=== PATIENT | female | born 1965 | race Caucasian/White ===

== ENCOUNTER 2016-06-27 21:44 | Inpatient (IN) | payer OTHER ==
[~2016-06-27] VITALS: Ht 157.5 cm; Wt 68.0 kg
--- NOTE | 2016-06-27 22:00 | NUR ---
TO BED 2 AMBULATORY C/O RUQ ABD PAIN RADIATES TO LUQ ABD WITH NAUSEA AND MIDUPPER BACK X SEVERAL MONTHS. PT AAOX4 NO ACUTE DISTRESS NOTED, RESP EVEN AND UNLABORED. PENDING ER MD ABEL.
[2016-06-27] MEDS ORDERED: ONDANSETRON 4 MG TAB.RAPDIS ONE (22:24)
[2016-06-27] MEDS ORDERED: ONDANSETRON 4 MG TAB.RAPDIS SL ONE (22:30)
--- NOTE | 2016-06-27 22:33 | NUR ---
HENRY TECH AT BEDSIDE FOR GALLBLADDER HENRY.
[2016-06-27 22:37] LABS: BASOPHILS # (AUTO) 0.1 /CMM (0.0-0.2); BASOPHILS % (AUTO) 0.9 % (0.0-2.0); EOSINOPHILS # (AUTO) 0.4 /CMM (0.0-0.7); EOSINOPHILS % (AUTO) 3.2 % (0.0-6.0); HEMATOCRIT 37 % (33-45); HEMOGLOBIN 12.4 g/dL (11.5-14.8); LYMPHOCYTES # (AUTO) 2.6 /CMM (0.8-4.8); LYMPHOCYTES % (AUTO) 21.8 % (20.0-44.0); MEAN CORPUSCULAR HEMOGLOBIN 30 PG (26.0-33.0); MEAN CORPUSCULAR HGB CONC 33 g/dl (31.0-36.0); MEAN CORPUSCULAR VOLUME 89 fL (82-100); NEUTROPHILS # (AUTO) 7.9 /CMM (1.8-8.9); NEUTROPHILS % (AUTO) 66.1 % (43.0-81.0); PLATELET COUNT (AUTO) 336 /CMM (150-450); RDW COEFFICIENT OF VARIATION 13.1 (11.5-15.0); RED BLOOD CELL COUNT(AUTO) 4.18 MIL/uL (4.0-5.2)
[2016-06-27] MEDS ORDERED: ONDANSETRON HCL/PF 4 MG/2 ML VIAL ONE (22:37)
[2016-06-27] MEDS ORDERED: HYDROMORPHONE 1 MG/1 ML DISP.SYRIN ONE (22:37)
[2016-06-27] MEDS ORDERED: IV SET PRIMARY PUMP SET 1 EA INFUS.SET MC ONE (22:37)
[2016-06-27] MEDS ORDERED: IV NS 0.9% 1,000 ML ONE ×2 (22:37→23:51)
[2016-06-27] MEDS ORDERED: PIPERACILLIN /TAZOBACTAM 3.375 G VIAL IV ONE (22:42)
[2016-06-27] MEDS ORDERED: SECONDARY IV SET 1 EA INFUS.SET MC ONE (22:43)
--- NOTE | 2016-06-27 22:44 | NUR ---
RN AT BEDSIDE TO MEDICATE PT.
[2016-06-27 22:46] LABS: CALCIUM, SERUM 8.6 mg/dL (8.5-10.1); CREATININE 0.9 mg/dL (0.6-1.3); POTASSIUM 3.7 mmol/L (3.5-5.1)
[2016-06-27 22:49] LABS: INR 0.89 (0.87-1.13); PROTHROMBIN TIME 9.4 SECS (9.5-12.7)
[2016-06-27 22:52] LABS: ALBUMIN 4.1 g/dL (3.4-5.0); BILIRUBIN,DIRECT 0.1 mg/dL (0.0-0.2); BILIRUBIN,TOTAL 0.2 mg/dL (0.2-1.0); TOTAL PROTEIN, SERUM 7.1 g/dL (6.4-8.2)
[2016-06-27] MEDS ORDERED: HYDROMORPHONE 1 MG/1 ML DISP.SYRIN IV ONE (23:00)
[2016-06-27] MEDS ORDERED: PIPERACILLIN /TAZOBACTAM 3.375 G in IV D5W 50 ML IV ONE (23:00)
[2016-06-27] MEDS ORDERED: ONDANSETRON HCL/PF 4 MG/2 ML VIAL IV ONE (23:00)
[2016-06-27] MEDS ORDERED: IV NS 0.9% 1,000 ML BAG IV ONE ×2 (23:00→23:30)
[2016-06-27 23:17] LABS: BILIRUBIN,URINE NEGATIVE (NEGATIVE); BLOOD, URINE TRACE-INTA Ery/uL (NEGATIVE); COLOR,URINE YELLOW (YELLOW); KETONES,URINE NEGATIVE (NEGATIVE); LEUKOCYTE ESTERASE ,URINE NEGATIVE (NEGATIVE); NITRITE, URINE NEGATIVE (NEGATIVE); PROTEIN,URINE NEGATIVE (NEGATIVE); UGLUCOSE NEGATIVE (NEGATIVE); UROBILINOGEN,URINE 0.2 EU/dL (0.2)
--- NOTE | 2016-06-27 23:17 | NUR ---
ER MD TALKING TO PT REGARDING LA RESULTS AND HOSPITAL ADMISSION. PT AGREED.
--- NOTE | 2016-06-27 23:18 | NUR ---
FRANCESCO HERNADEZ SPOKE TO DR. ROD REYNOLDS PT ADMISSION.
[2016-06-27 23:23] LABS: APPEARANCE,URINE HAZY (CLEAR)
[2016-06-27 23:27] LABS: ADD URINE CULTURE NO; BACTERIA,URINE None seen /HPF (None Seen); CALCIUM OXALATE CRYSTALS,UR Many /HPF (None Seen); RBC,URINE 0-2 /HPF (0-2); SQUAMOUS EPITHELIAL CELL,UR Rare /HPF (None Seen)
--- NOTE | 2016-06-27 23:50 | NUR ---
ER SPOKE TO ABIGAIL DOOLEY DNP REGARDING PT ADMISSION.
--- NOTE | 2016-06-28 00:05 | NUR ---
REPORT CALLED TO M/S DIEGO DUGAN. WILL TRANSPORT PT TO ROOM 118-1.
[2016-06-28 01:00] VITALS: BP 103/63
[2016-06-28] MEDS ORDERED: Z GUARD REMEDY 2 OZ OINT TP PRN (01:00)
[2016-06-28] MEDS ORDERED: ONDANSETRON HCL/PF 4 MG/2 ML VIAL IVP PRN (01:00)
[2016-06-28] MEDS ORDERED: ACETAMINOPHEN 325 MG TABLET PO PRN (01:00)
[2016-06-28] MEDS ORDERED: ZOLPIDEM TARTRATE 5 MG TABLET PO PRN (01:00)
[2016-06-28] MEDS ORDERED: MAGNESIUM HYDROXIDE 30 ML UDC PO PRN (01:00)
[2016-06-28] MEDS ORDERED: IV D5/0.45 NACL 1,000 ML IV ONE (01:53)
[2016-06-28] MEDS: IV D5/0.45 NACL 1,000 ML IV PRN ×2 (02:00→16:28)
--- NOTE | 2016-06-28 02:29 | NUR ---
RN NOTES: 0040 : RECEIVED PATIENT FROM ER DEPARTMENT ON STABLE CONDITION, NO COMPLAINS OF PAIN OR ACUTE DISTRESS NOTED. PATIENT'S VITAL SIGNS : BP:103/63 MMHG. HR:58 BPM. RR:16 B/MIN O2 SAT: 96%. PATIENT IS KEPT NPO ORDERED BY MD. PATIENT ON ROOM AIR. PATIENT HAS LAC IV ACCESS GAUGE 20. ON D5 1/2 NS @75 ML/HR. WILL CONTINUE TO MONITOR PATIENT.
[2016-06-28 04:00] VITALS: BP 100/58
[2016-06-28] MEDS ORDERED: PIPERACILLIN /TAZOBACTAM 3.375 G VIAL IV ONE (05:48)
[2016-06-28] MEDS ORDERED: SECONDARY IV SET 1 EA INFUS.SET MC ONE ×2 (05:49→11:26)
[2016-06-28] MEDS ORDERED: IV D5W 50 ML IV ONE ×2 (05:49→05:50)
[2016-06-28] MEDS: PIPERACILLIN /TAZOBACTAM 3.375 G in IV D5W 50 ML IV SCH ×4 (06:05→23:34)
--- NOTE | 2016-06-28 07:30 | NUR ---
RN INITIAL NOTE RECEIVED PT FORM PM SHIFT.PT A/O X 4 ABLE TO EXPRESS NEEDS AND WANTS. ALETHA#6, PT ON RA NO S/S OF ACUTE SOB OR DISTRESS. IV L AC #20 DS1/2 NS @ 75 ML/HR FLUSH PATENT AND INTACT. PT RESTING COMFORTABLY IN BED CLEAN WARM AND DRY. ALL SAFETY MEASURES IN PLACE. WILL CONTINUE TO MONITOR CLOSELY.
[2016-06-28 08:00] VITALS: BP 112/71
[2016-06-28] MEDS: MORPHINE SULFATE INJ 2 MG/ML DISP.SYRIN IV PRN ×5 (08:15→21:05)
[2016-06-28] MEDS ORDERED: IBUP200C5 PO (08:21)
[2016-06-28 16:00] VITALS: BP 133/82
[2016-06-28 20:00] VITALS: BP 146/88
--- NOTE | 2016-06-28 20:00 | NUR ---
RN INITIAL NOTE; PT RECEIVED ON BED WITHOUT ANY DISTRESS, PT IS A/O X 4 ,BREATHING EVEN AND UNLABORED. PERIPHERAL IV IN RIGHT HAND 22G INTACT AND PATENT WITH CONTINUE D5 1/2 NS @ 75 ML/HR , BED IN LOWEST AND LOCKED POSITION, CONTINENT TO BOWEL/BLADDER HABIT. CALL LIGHT WITHIN REACH, WILL CONTINUE TO MONITOR.
--- NOTE | 2016-06-28 20:01 | NUR ---
RN CLOSING NOTE PT A/O X 4 ABLE TO EXPRESS NEEDS AND WANTS. PT ON RA NO S/S OF ACUTE SOB OR DISTRESS. IV R HAND 24 DS1/2 NS @ 75 ML/HR FLUSH PATENT AND INTACT. PT RESTING COMFORTABLY IN BED CLEAN WARM AND DRY. PAIN MEDICATION. REPORT GIVEN TO PM SHIFT FOR TANVI. PT STABLE THROUGH OUT SHIFT.
[2016-06-29 04:00] VITALS: BP 106/67
[2016-06-29] MEDS: MORPHINE SULFATE INJ 2 MG/ML DISP.SYRIN IV PRN ×4 (05:02→21:47)
[2016-06-29] MEDS: PIPERACILLIN /TAZOBACTAM 3.375 G in IV D5W 50 ML IV SCH ×3 (06:30→17:01)
--- NOTE | 2016-06-29 07:34 | NUR ---
RN EOS NOTE; PT REMAINED STABLE DURING THE SHIFT. NO DISTRESS NOTED, PRN MORPHINE 2MG IV GIVEN FOR PAIN, TOLERATED WELL, IV ATB TOLERATED WELL. ALL NEEDS ATTENDED PROMPTLY. CALL LIGHT WITHIN REACH , ENDORSE TO NEXT SHIFT RN FOR CONTINUITY OF CARE.
[2016-06-29 07:37] LABS: BASOPHILS % (AUTO) 0.6 % (0.0-2.0); EOSINOPHILS # (AUTO) 0.3 /CMM (0.0-0.7); EOSINOPHILS % (AUTO) 4.5 % (0.0-6.0); HEMATOCRIT 32 % (33-45); HEMOGLOBIN 10.8 g/dL (11.5-14.8); LYMPHOCYTES # (AUTO) 1.8 /CMM (0.8-4.8); LYMPHOCYTES % (AUTO) 25.9 % (20.0-44.0); MEAN CORPUSCULAR HEMOGLOBIN 30 PG (26.0-33.0); MEAN CORPUSCULAR HGB CONC 34 g/dl (31.0-36.0); MEAN CORPUSCULAR VOLUME 89 fL (82-100); MONOCYTES # (AUTO) 0.7 /CMM (0.1-1.30); MONOCYTES % (AUTO) 10.2 % (2.0-12.0); NEUTROPHILS # (AUTO) 4.1 /CMM (1.8-8.9); NEUTROPHILS % (AUTO) 58.8 % (43.0-81.0); PLATELET COUNT (AUTO) 272 /CMM (150-450); RDW COEFFICIENT OF VARIATION 13.3 (11.5-15.0); RED BLOOD CELL COUNT(AUTO) 3.61 MIL/uL (4.0-5.2)
[2016-06-29 07:52] LABS: ALBUMIN 3.6 g/dL (3.4-5.0); BILIRUBIN,TOTAL 0.6 mg/dL (0.2-1.0); CALCIUM, SERUM 8.4 mg/dL (8.5-10.1); CREATININE 0.8 mg/dL (0.6-1.3); MAGNESIUM 2.1 mg/dL (1.8-2.4); PHOSPHORUS 4.2 mg/dL (2.5-4.9); POTASSIUM 3.7 mmol/L (3.5-5.1); TOTAL PROTEIN, SERUM 6.5 g/dL (6.4-8.2)
[2016-06-29 08:00] VITALS: BP 112/63
[2016-06-29 08:00] LABS: THYROID STIMULATING HORMONE 2.877 uIU/mL (0.358-3.74)
--- NOTE | 2016-06-29 08:00 | NUR ---
MS RN NOTE PATIENT IN BED , NO C\O DISCOMFORT AT THIS ABIGAIL . ON NPO STATUS AT THIS TIME , ALERT ,ORIENTED X4 , RT HAND HL INTACT , NO S\S INFECTION NOTED , ON IVF ORDERED , PLAN OF CARE DISCUSSED WITH PATIENT , ALL NEEDS ATTENDED, BED IN LOWEST AND LOCKED POSITION , CALL LIGHT WITHIN REACH , WILL MONITOR CLOSELY
[2016-06-29 08:19] VITALS: BP 112/63
[2016-06-29] MEDS: IV D5/0.45 NACL 1,000 ML IV PRN ×2 (09:10→21:51)
--- NOTE | 2016-06-29 10:20 | NUR ---
MS RN NOTE PER DR CAPELLAN OK TO START LIQUID DIET ORDER JOHANNA OUT , MORPHINE FOR PAIN GIVEN ORDERED ,WILL CONT TO MONITOR CLOSELY
--- NOTE | 2016-06-29 13:32 | NUR ---
MS RN NOTE PER OR GÓMEZ DR CAPELLAN CONSENT FOR HIDA SCAN OBTAINED ,CONT ON IVF AND PATIENT WILL BE ON NPO WILL F\ U
--- NOTE | 2016-06-29 15:52 | NUR ---
MS RN NOTES Pt no c/o discomfort at this time. Continue fluids as ordered. Keep NPO. Awaiting for HIDA scan
[2016-06-29 16:00] VITALS: BP 120/58
--- NOTE | 2016-06-29 17:05 | NUR ---
MS RN NOTE TAKEN TO NUCLEAR MEDS JONO HIDDA SCAN ORDERED
--- NOTE | 2016-06-29 18:47 | NUR ---
MS RN NOTE BACK FROM HIDDA SCAN BUT PER TATIANA NUCLEAR MEDS STILL NPO NO MORPHINE AT THIS TIME WILL HAVE ADDITION TEST AT 2100
--- NOTE | 2016-06-29 19:46 | NUR ---
RN INITIAL NOTE; PT ON THE BED RESTING AT THIS TIME . A/O x4 , BREATHING EVEN AND UNLABORED ON ROOM AIR , RH #22 G INTACT AND PATENT WITH CONTINUE IVF. PT HAVING PAIN BUT CANNOT HAVE MORPHINE UNTIL 9PM ADDITIONAL TEST, DISTRACTION, REDIRECTING, DEEP BREATHING , MEDITATION ,BACK RUBBING EFFECTIVE AT THIS TIME, BED IN THE LOWEST AND LOCKED POSITION , SAFETY MEASURES APPLIED, CONTINENT TO BOWEL/BLADDER HABIT. ASSISTED NEEDED , WILL KEEP CLEAN AND COMFORTABLE. CALL LIGHT WITHIN REACH .WILL CONTINUE TO MONITOR .
[2016-06-29 20:00] VITALS: BP 140/67
[2016-06-30] MEDS: PIPERACILLIN /TAZOBACTAM 3.375 G in IV D5W 50 ML IV SCH ×5 (00:24→23:37)
[2016-06-30] MEDS: MORPHINE SULFATE INJ 2 MG/ML DISP.SYRIN IV PRN ×6 (02:25→23:39)
[2016-06-30 04:00] VITALS: BP 113/44
--- NOTE | 2016-06-30 07:08 | NUR ---
RN EOS NOTE; NO ANY DISTRESS DURING THE SHIFT, PRN MORPHINE IV GIVEN NEEDED, KEPT COMFORTABLE, ALL NEEDS ATTENDED PROMPTLY. NPO FOR SURGERY , CONSENT SIGNED BY PT .ENDORSED TO NEXT SHIFT RN FOR CONTINUITY OF CARE.
[2016-06-30 07:10] LABS: BASOPHILS % (AUTO) 0.7 % (0.0-2.0); EOSINOPHILS # (AUTO) 0.4 /CMM (0.0-0.7); EOSINOPHILS % (AUTO) 6.4 % (0.0-6.0); HEMATOCRIT 32 % (33-45); HEMOGLOBIN 10.6 g/dL (11.5-14.8); LYMPHOCYTES # (AUTO) 1.9 /CMM (0.8-4.8); LYMPHOCYTES % (AUTO) 29.5 % (20.0-44.0); MEAN CORPUSCULAR HEMOGLOBIN 30 PG (26.0-33.0); MEAN CORPUSCULAR HGB CONC 34 g/dl (31.0-36.0); MEAN CORPUSCULAR VOLUME 89 fL (82-100); MONOCYTES # (AUTO) 0.7 /CMM (0.1-1.30); MONOCYTES % (AUTO) 10.3 % (2.0-12.0); NEUTROPHILS # (AUTO) 3.4 /CMM (1.8-8.9); NEUTROPHILS % (AUTO) 53.1 % (43.0-81.0); PLATELET COUNT (AUTO) 261 /CMM (150-450); RDW COEFFICIENT OF VARIATION 12.9 (11.5-15.0); RED BLOOD CELL COUNT(AUTO) 3.53 MIL/uL (4.0-5.2); WHITE BLOOD COUNT (AUTO) 6.4 K/uL (4.3-11.0)
[2016-06-30 07:20] LABS: CALCIUM, SERUM 8.5 mg/dL (8.5-10.1); CREATININE 0.8 mg/dL (0.6-1.3); MAGNESIUM 2.1 mg/dL (1.8-2.4); PHOSPHORUS 4.5 mg/dL (2.5-4.9); POTASSIUM 3.7 mmol/L (3.5-5.1)
[2016-06-30 08:00] VITALS: BP 106/62
--- NOTE | 2016-06-30 08:00 | NUR ---
MS RN NOTE: RECEIVED PATIENT ALERT AND ORIENTED X3 IN BED, ON RA NAD NOTED. RH 22G WITH IV FLUIDS. IV PATENT AND INTACT. PATIENT ABLE TO AMBULATE TO RESTROOM. C/O PAIN. PAIN MANAGEMENT PROVIDED. PATIENT DUE FOR LAP JOHNNY AT 0900, EDUCATION PROVIDED ABOUT SURGERY AND PLAN OF CARE. SAFETY MAINTAINED, CALL LIGHT PLACED WITHIN REACH. ONGOING MONITORING.
[2016-06-30] MEDS ORDERED: MIDAZOLAM HCL 2 MG/2ML VIAL ONE (09:05)
[2016-06-30] MEDS ORDERED: ROCURONIUM BROMIDE 50 MG/5 ML ONE (09:06)
[2016-06-30] MEDS ORDERED: FENTANYL PF 100MCG/2ML AMPUL ONE (09:06)
[2016-06-30] MEDS ORDERED: BUPIVACAINE MPF 0.5% W/EPI INJ 30 ML VIAL ONE (09:20)
--- NOTE | 2016-06-30 09:25 | NUR ---
MS RN NOTE: PATIENT TRANSPORTED TO OR FOR SURGERY, ALERT AND ORIENTED X3, NAD NOTED. VSS
[2016-06-30] MEDS ORDERED: CEFAZOLIN 0 GM ONE (10:19)
[2016-06-30] MEDS ORDERED: HYDROMORPHONE INJ 2 MG/ML DISP.SYRIN ONE (12:03)
[2016-06-30] MEDS ORDERED: HYDROMORPHONE 1 MG/1 ML DISP.SYRIN ONE (12:16)
--- NOTE | 2016-06-30 13:00 | NUR ---
MS RN NOTE: PATIENT RECEIVED FROM OR ALERT AND ORIENTED X3 ON RA, NO RESPIRATORY DISTRESS NOTED. PATIENT DENIES PAIN AT THIS TIME HOWEVER STATES SHE FEELS LOOPY. BED ALARM ON. PATIENT INSTRUCTED TO STAY IN BED. POST OP ORDERS RECEIVED. 5 ABD INCISIONS NOTED, MINIMAL REDNESS AND NO SWELLING. PATIENT MADE COMFORTABLE, NEEDS MET, VSS, CALL LIGHT WITHIN REACH. ONGOING MONITORING
[2016-06-30] MEDS ORDERED: CELLULOSE,OXIDIZED 1 EACH EACH MC ONE (15:06)
[2016-06-30] MEDS ORDERED: ANESTHESIA TRAY IN PYXIS 1 EA TRAY MC ONE (15:06)
[2016-06-30 16:00] VITALS: BP 126/73
[2016-06-30] MEDS: IV LR 1000 ML 1,000 ML IV PRN ×2 (16:16→23:39)
[2016-06-30] MEDS ORDERED: HYDROCODONE/APAP 5/325MG 1 EACH TABLET PO PRN (17:30)
[2016-06-30] MEDS ORDERED: ANCEF 1 GM/50 ML D5W IV SCH ×2 (18:00)
--- NOTE | 2016-06-30 19:10 | NUR ---
MS RN NOTE: PATIENT AWAKE ALERT AND ORIENTED, PAIN MANAGEMENT PROVIDED, ON CLEAR LIQUID DIET THAT TOLERATED. PATIENT C/O NAUSEA, ZOFRAN ADMINISTERED. PAIN MANAGEMENT PROVIDED. ALL NEEDS MET. SAFETY MAINTAINED. CALL LIGHT WITHIN REACH, PATIENT ENDORSED FOR CONTINUITY OF CARE
[2016-06-30 20:00] VITALS: BP 124/65
[2016-07-01] MEDS: MORPHINE SULFATE INJ 2 MG/ML DISP.SYRIN IV PRN ×4 (02:18→12:06)
--- NOTE | 2016-07-01 04:14 | NUR ---
PT STILL ON CLEARS, IV FLUIDS CONTINUED, NO BM BUT PASSES GAS, PAIN CONTROLLED WITH MORPHINE 2MG,LAP SITES INTACT AND DRY, GLUED INCISION.REQUESTED TO SLEEP UNDISTURBED AFTER 0200 PAIN SHOT,VSS,AFEBRILE, ALL NEEDS ATTENDED.CALL LIGHT AT REACHED.
[2016-07-01] MEDS: PIPERACILLIN /TAZOBACTAM 3.375 G in IV D5W 50 ML IV SCH ×2 (05:30→12:00)
[2016-07-01 05:37] VITALS: BP 139/60
--- NOTE | 2016-07-01 07:20 | NUR ---
RN INITIAL NOTE RECEIVED PT FROM PM NURSE. A/O 4. PT ON RA NO S/S ACUTE SOB. . IV R HAND FLUSH AND PATENT. PT 09/24 PAIN MORPHINE WILL BE GIVEN.ALL SAFETY MEASURES IN PLACE. PT CLEAN WARM AND DRY. WILL CONTINUE TO MONITOR CLOSELY.
[2016-07-01 07:25] LABS: BASOPHILS # (AUTO) 0.1 /CMM (0.0-0.2); BASOPHILS % (AUTO) 0.6 % (0.0-2.0); EOSINOPHILS # (AUTO) 0.1 /CMM (0.0-0.7); EOSINOPHILS % (AUTO) 0.8 % (0.0-6.0); HEMATOCRIT 30 % (33-45); HEMOGLOBIN 10.4 g/dL (11.5-14.8); LYMPHOCYTES # (AUTO) 2.1 /CMM (0.8-4.8); LYMPHOCYTES % (AUTO) 21.2 % (20.0-44.0); MEAN CORPUSCULAR HEMOGLOBIN 31 PG (26.0-33.0); MEAN CORPUSCULAR HGB CONC 34 g/dl (31.0-36.0); MEAN CORPUSCULAR VOLUME 90 fL (82-100); MONOCYTES # (AUTO) 0.8 /CMM (0.1-1.30); MONOCYTES % (AUTO) 8.4 % (2.0-12.0); NEUTROPHILS # (AUTO) 6.8 /CMM (1.8-8.9); PLATELET COUNT (AUTO) 259 /CMM (150-450); RDW COEFFICIENT OF VARIATION 12.9 (11.5-15.0); RED BLOOD CELL COUNT(AUTO) 3.37 MIL/uL (4.0-5.2); WHITE BLOOD COUNT (AUTO) 9.8 K/uL (4.3-11.0)
[2016-07-01 07:40] LABS: ALBUMIN 3.3 g/dL (3.4-5.0); BILIRUBIN,TOTAL 0.5 mg/dL (0.2-1.0); CALCIUM, SERUM 8.4 mg/dL (8.5-10.1); CREATININE 0.8 mg/dL (0.6-1.3); POTASSIUM 3.5 mmol/L (3.5-5.1); TOTAL PROTEIN, SERUM 6.2 g/dL (6.4-8.2)
[2016-07-01 08:00] VITALS: BP 130/79
--- NOTE | 2016-07-01 10:00 | NUR ---
RN NOTE MORPHINE GIVEN IV 2MG/1 ML. PT SCANNED AND VERIFIED. DID NOT DOCUMENT IN CHART. Addendum: 07/01/16 at 1503 by JUSTINO POLLOCK RN SPOKE TO CHARGE NURSE SOON ABOUT NOT BEING ABLE TO DOCUMENT MORPHINE DUE TO PT BEING DISCHARGE AND NOT BEING ABLE TO ACCESS MEDICATIONS. ABIGAIL FROM PHARMACY NOTIFIED WELL OF NOT BEING ABLE TO DOCUMENT.
--- NOTE | 2016-07-01 12:40 | NUR ---
YARD BRAKEMAN NOTE PT DISCHARGED HOME. PT LEFT VIA PRIVATE CAR FRIEND LOREN BURR. IV REMOVED, ID BAND REMOVED. ALL DDC INSTRUCTIONS GIVEN TO PT. ALL QUESTIONS ANSWERED, BELONGINS LIST Addendum: 07/01/16 at 1349 by JUSTINO POLLOCK RN SIGNED, PT SKIN INTACT NO PHOTS TAKEN. PT CLEAN AND DRY. ALL ORDERS CARRIED OUT. IV ANTIBIOTIC NOT GIVEN PT WANTED TO LEAVE. INFORMED PT TO CALL TO MAKE F/U APPT WITH LIV . PT AGREED.
== END 2016-07-01 12:45 | disposition home or self-care (01) | DRG 263 ==
LOC: ER 21:46 → MEDSG1 06-28 00:16
PROVIDERS: ADMIT Nurse Practitioner Acute Care; ATTEND Nurse Practitioner Acute Care
PROC: 0FT44ZZ Resection of Gallbladder, Percutaneous Endoscopic Approach (ICD-10-PCS; principal; 2016-06-30 09:00)
DX: K80.00 Calculus of gallbladder with acute cholecystitis without obstruction (principal); E66.9 Obesity, unspecified; D72.829 Elevated white blood cell count, unspecified; Z90.710 Acquired absence of both cervix and uterus; Z68.27 Body mass index [BMI] 27.0-27.9, adult
CPT/HCPCS: 36415; 71010-TC; 76705-TC; 78226; 80048-TC; 80053-TC; 80061-TC; 80076-TC; 81000-TC; 83690-TC; 83735-TC; 84100-TC; 84443-TC; 85025-TC; 85610-TC; 86850-TC; 87081-TC; 88304-TC; 88305-TC; A4606; A6402; A9537; J0690; J1100; J1170; J1885; J2250; J2270; J2405; J2543; J2704; J2710; J3010; J3490; J7030; J7060; J7120; Q0162; Z7610